=== PATIENT | female | born 1980 | race Caucasian/White ===

== ENCOUNTER → 2021-08-04 12:06 | Outpatient (BNVA) | payer BC, SELFPAY | PROVIDERS: Visit Provider Internal Medicine | DX: R76.8 Other specified abnormal immunological findings in serum (principal) | CPT/HCPCS: 36415; 82533; 82550; 82728; 82784; 83516; 84425; 85651; 86140; 86160; 86162; 86200; 86235; 86255; 86376; 86431; 86704; 86803; 87340 ==

== ENCOUNTER → 2021-09-30 15:03 | Outpatient (BNVA) | payer BC, SELFPAY | PROVIDERS: Visit Provider Internal Medicine | DX: M79.89 Other specified soft tissue disorders (principal); R76.8 Other specified abnormal immunological findings in serum; M25.50 Pain in unspecified joint | CPT/HCPCS: 73120; 80053; 82533; 83516; 84155; 84165; 84443; 85025; 85651; 86140 ==

== ENCOUNTER → 2021-11-11 09:21 | Outpatient (BNVA) | payer BC, SELFPAY | PROVIDERS: Visit Provider Internal Medicine | DX: M79.89 Other specified soft tissue disorders (principal); R76.8 Other specified abnormal immunological findings in serum; M25.50 Pain in unspecified joint | CPT/HCPCS: 72040; 72202; 73620 ==

== ENCOUNTER → 2022-02-15 11:02 | Outpatient (BNVA) | payer BC, SELFPAY | PROVIDERS: Visit Provider Internal Medicine | DX: M25.50 Pain in unspecified joint (principal); G56.20 Lesion of ulnar nerve, unspecified upper limb; R76.8 Other specified abnormal immunological findings in serum; M79.89 Other specified soft tissue disorders | CPT/HCPCS: 36415; 80053; 85025; 85651; 86140; 86480 ==

== ENCOUNTER → 2023-01-10 11:55 | Outpatient (BNVA) | payer BC, SELFPAY | PROVIDERS: PCP Nurse Practitioner Family; Referring Provider Internal Medicine; Visit Provider Specialist | DX: M79.89 Other specified soft tissue disorders (principal); R76.8 Other specified abnormal immunological findings in serum; R20.0 Anesthesia of skin | CPT/HCPCS: 36415; 80053; 85025; 85651; 86140 ==